=== PATIENT | male | born 1990 ===

== ENCOUNTER 2024-07-11 11:44 | Outpatient (CLI) | payer OTHER, SELFPAY | END 2024-07-11 11:45 | disposition home or self-care (01) | LOC: AMB 07-18 14:29 | PROVIDERS: Visit Provider Student in an Organized Health Care Education/Training Program | DX: S09.90XA Unspecified injury of head, initial encounter (principal); R56.9 Unspecified convulsions; V47.0XXA Car driver injured in collision with fixed or stationary object in nontraffic accident, initial encounter; Y92.410 Unspecified street and highway as the place of occurrence of the external cause | CPT/HCPCS: A0425; A0427 ==